=== PATIENT | female | born 1960 | race Caucasian/White ===

== ENCOUNTER 2022-12-22 12:52 | Emergency (ER) | payer MEDICARE, SELFPAY ==
[2022-12-22 13:01] VITALS: BP 121/83; PULSE 112; RESP 20; TEMP 36.3; O2SAT 93
--- NOTE | 2022-12-22 14:27 | ED.GENADULT ---
HPI - General Adult General Chief complaint: Urogenital-Female Stated complaint: Urinary Problem Source: patient Mode of arrival: ambulatory Limitations: no limitations History of Present Illness HPI narrative: Patient presents for evaluation of urinary symptoms for last week. Symptoms include dysuria, suprapubic pressure, urgency, hesitancy, frequency, and dribbling. No fever, chills, nausea, vomiting, abdominal pain, low back pain, vaginal bleeding/discharge. Related Data Home Medications Medication Instructions Recorded Confirmed albuterol sulfate 2.5 mg/3 mL 2.5 mg continuous nebulization Q4H 12/22/22 12/22/22 (0.083 %) solution for nebulization PRN Shortness Of Breath Or Wheezing alendronate 70 mg tablet 70 mg PO WEEKLY 12/22/22 12/22/22 atorvastatin 20 mg tablet 20 mg PO DAILY 12/22/22 12/22/22 dulaglutide 0.75 mg/0.5 mL 0.75 mg subcut WEEKLY 12/22/22 12/22/22 subcutaneous pen injector (Trulicity) fluoxetine 20 mg capsule 60 mg PO DAILY 12/22/22 12/22/22 fluticasone fur. 100 mcg-umeclid 1 inh inhalation DAILY 12/22/22 12/22/22 62.5 mcg-vilant 25 mcg inhalat.powder (Trelegy Ellipta) hydroxyzine HCl 25 mg tablet 25 mg PO TID PRN Anxiety 12/22/22 12/22/22 ipratropium bromide 0.02 % 3 ml continuous nebulization Q6H 12/22/22 12/22/22 solution for inhalation PRN Shortness Of Breath Or Wheezing lisinopril 20 1 tablet PO DAILY 12/22/22 12/22/22 mg-hydrochlorothiazide 12.5 mg tablet lurasidone 60 mg tablet 60 mg PO QPM 12/22/22 12/22/22 Allergies Allergy/AdvReac Type Severity Reaction Status Date / Time No Known Allergies Allergy Verified 12/22/22 13:11 Review of Systems Review of Systems: CONSTITUTIONAL: Denies fever, chills, or sweats. EYES: Denies visual changes, redness, or discharge. ENT: Denies rhinorrhea, congestion, sore throat, or otalgia. CARDIOVASCULAR: Denies chest pain, palpitations, or edema. RESPIRATORY: Denies cough or dyspnea. GASTROINTESTINAL: Denies abdominal pain, nausea, vomiting, or diarrhea. GENITOURINARY: Reports urinary frequency, urgency, hesitancy, dysuria, suprapubic pressure, and dribbling. Denies hematuria, vaginal bleeding or discharge SKIN: Denies rash or itching. MUSCULOSKELETAL: Denies back pain, joint pain, or myalgia. NEUROLOGIC: Denies headache, numbness, dizziness, or weakness. PSYCHIATRIC: Denies anxiety or depression. [facility] Past Medical History Medical History Emphysema lung Hyperlipidemia Surgical History Surgical History No pertinent past surgical history Family History Family History Father Family history non-contributory Social History Social History (Updated 12/22/22 @ 14:30 by MARY KAY Correa, ) Smoking packs per day: 1 Smoking cigarettes per day: 20.0 Smoking status: Current every day smoker Substance use: never Additional living arrangements comments: Lives with boyfriend Gender identity (if verbalized by the patient): Female Sexual Orientation (if Verbalized by the Patient): Straight or Heterosexual Course Course Emergency Course: This is a 62-year-old female who presented for evaluation of urinary symptoms. She has leukocytes in her urine today. Will treat with Bactrim. Follow up with primary provider. Go to the ER for worsening symptoms. Patient in agreement with plan of care. Level of Care: Express Care Visit Vital Signs Vital signs: Vital Signs Temperature 36.3 C L 12/22/22 13:01 Pulse Rate 112 H 12/22/22 13:01 Respiratory Rate 20 12/22/22 13:01 Blood Pressure 121/83 12/22/22 13:01 Pulse Oximetry 93 12/22/22 13:01 Oxygen Delivery Room Air 12/22/22 13:01 Temperature 36.3 C L 12/22/22 13:01 Pulse Rate 112 H 12/22/22 13:01 Respiratory Rate 20 12/22/22 13:01 Blood Pressure 121/83 0
== END 2022-12-22 14:30 | disposition home or self-care (01) ==
PROVIDERS: Emergency Provider Nurse Practitioner
DX: N30.00 Acute cystitis without hematuria (principal); B96.20 Unspecified Escherichia coli [E. coli] as the cause of diseases classified elsewhere; F17.210 Nicotine dependence, cigarettes, uncomplicated; E78.5 Hyperlipidemia, unspecified
CPT/HCPCS: 81003; 87077; 87086; 87186; 99213; G0463